=== PATIENT | male | born 1995 | race Caucasian/White ===

== ENCOUNTER 2019-11-11 16:30 | Emergency (ER) | payer MEDICAID ==
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
== END 2019-11-11 18:05 | disposition home or self-care (01) ==
LOC: JD.ED 16:30
DX: S22.31XA Fracture of one rib, right side, initial encounter for closed fracture (principal); S12.601A Unspecified nondisplaced fracture of seventh cervical vertebra, initial encounter for closed fracture; M54.5 Low back pain; F17.210 Nicotine dependence, cigarettes, uncomplicated; W16.42XA Fall into unspecified water causing other injury, initial encounter; Y92.828 Other wilderness area as the place of occurrence of the external cause
CPT/HCPCS: 99283

== ENCOUNTER 2019-11-28 12:52 | Emergency (ER) | payer MEDICAID ==
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
== END 2019-11-28 13:56 | disposition home or self-care (01) ==
LOC: JD.ED 12:52
DX: S12.691D Other nondisplaced fracture of seventh cervical vertebra, subsequent encounter for fracture with routine healing (principal); M54.10 Radiculopathy, site unspecified; F17.210 Nicotine dependence, cigarettes, uncomplicated; Z79.899 Other long term (current) drug therapy; W16.122D Fall into natural body of water striking bottom causing other injury, subsequent encounter
CPT/HCPCS: 99283

== ENCOUNTER 2020-07-19 07:34 | Emergency (ER) | payer SELFPAY ==
--- NOTE | 2020-07-19 08:14 | EDM.PDOC ---
ED HPI GENERAL MEDICAL PROBLEM - General Chief Complaint: Chest Pain Stated Complaint: HEADACHE/CHEST PAIN/COUGH Time Seen by Provider: 07/19/20 08:04 - History of Present Illness INITIAL COMMENTS - FREE TEXT/NARRATIVE: 25-year-old male presents the emergency room with 3-day history of cough and generally not feeling well. This started about 3 days ago progressively getting worse he has a dry nonproductive cough. He is not aware of any fevers but has not been checking. No nausea or vomiting or GI symptoms. Denies any loss of taste or smell. Past medical history is for the most part unremarkable he had a recent C7 fracture along with an associated rib fracture. This all healed up with conservative management. He is not taking any routine medications. He has some chest discomfort usually with deep breathing. Chest Pain Score (Numeric/FACES): 8 Headache Pain Score (Numeric/FACES): 10 - Related Data Allergies Allergy/AdvReac Type Severity Reaction Status Date / Time No Known Allergies Allergy Verified 07/19/20 07:47 Home Meds: Home Meds Gabapentin [Neurontin] 300 mg PO ASDIRECTED #90 cap 11/28/19 [Rx] Past Medical History - Past Health History Medical/Surgical History: Denies Medical/Surgical History Respiratory History: Reports: Bronchitis, Recurrent Gastrointestinal History: Reports: PUD Musculoskeletal History: Reports: Fracture Other Musculoskeletal History: Fx C7, rib fx Social & Family History - Tobacco Use Tobacco Use Status *Q: Current Every Day Tobacco User Years of Tobacco use: 5 Packs/Tins Daily: 1 - Caffeine Use Caffeine Use: Reports: Coffee, Energy Drinks, Soda - Alcohol Use Days Per Week of Alcohol Use: 2 Number of Drinks Per Day: 6 Total Drinks Per Week: 12 - Recreational Drug Use Recreational Drug Use: Yes Drug Use in Last 12 Months: Yes Recreational Drug Type: Reports: Marijuana/Hashish - Living Situation & Occupation Living situation: Reports: Single Occupation: Employed ED ROS GENERAL - Review of Systems Review Of Systems: See Below Constitutional: Reports: No Symptoms HEENT: Reports: No Symptoms Respiratory: Reports: Cough. Denies: Shortness of Breath, Wheezing, Pleuritic Chest Pain, Sputum Cardiovascular: Reports: No Symptoms Endocrine: Reports: No Symptoms GI/Abdominal: Reports: No Symptoms : Reports: No Symptoms Musculoskeletal: Reports: No Symptoms Skin: Reports: No Symptoms Neurological: Reports: No Symptoms Psychiatric: Reports: No Symptoms Hematologic/Lymphatic: Reports: No Symptoms Immunologic: Reports: No Symptoms ED EXAM, GENERAL - Physical Exam Exam: See Below Exam Limited By: No Limitations General Appearance: Alert, No Apparent Distress Eye Exam: Bilateral Eye: Normal Inspection Ears: Normal External Exam, Normal Canal, Hearing Grossly Normal, Normal TMs Nose: Normal Inspection, Normal Mucosa, No Blood Throat/Mouth: Normal Inspection, Normal Lips, Normal Teeth, Normal Gums, Normal Oropharynx, Normal Voice, No Airway Compromise Head: Atraumatic, Normocephalic Neck: Normal Inspection, Supple, Non-Tender, Full Range of Motion. No: Lymphadenopathy (L), Lymphadenopathy (R) Respiratory/Chest: No Respiratory Distress, Lungs Clear, Normal Breath Sounds Cardiovascular: Regular Rate, Rhythm, No Edema, No Murmur GI/Abdominal: Normal Bowel Sounds, Soft, Non-Tender Back Exam: Normal Inspection. No: CVA Tenderness (L), CVA Tenderness (R) Extremities: Normal Inspection, No Pedal Edema Neurological: Alert, Oriented, Normal Cognition Skin Exam: Warm, Dry, Intact Course - Vital Signs Last Recorded V/S: Last Vital Signs Temp 36.9 C 07/19/20 07:40 Pulse 82 07/19/20 07:40 Resp 18 07/19/20 07:40 BP 126/87 07/19/20 07:40 Pulse Ox 98 07/19/20 07:40 - Orders/Labs/Meds Labs: Laboratory Tests 07/19/20 07/19/20 07/19/20 Range/Units 08:47 08:47 08:47 WBC 8.25 (4.23-9.07) K/mm3 RBC 4.51 L (4.63-6.08) M/mm3 Hgb 14.3 (13.7-17.5) gm/dl Hct 42.5 (40.1-51.0) % MCV 94.2 H (79.0-92.2) fl MCH 31.7 (25.7-32.2) pg MCHC 33.6 (32.2-35.5) g/dl RDW Std Deviation 43.3 (35.1-43.9) fL Plt Count 290 (163-337) K/mm3 MPV 8.6 L (9.4-12.3) fl Neutrophils % (Manual) 62 H (40-60) % Band Neutrophils % 0 (0-10) % Lymphocytes % (Manual) 24 (20-40) % Atypical Lymphs % 0 % Monocytes % (Manual) 12 H (2-10) % Eosinophils % (Manual) 2 (0.8-7.0) % Basophils % (Manual) 0 L (0.2-1.2) Platelet Estimate Adequate RBC Morph Comment Normal D-Dimer, Quantitative < 0.19 L (0.19-0.50) mg/L Sodium 141 (136-145) mEq/L Potassium 4.4 (3.5-5.1) mEq/L Chloride 104 (98-107) mEq/L Carbon Dioxide 26 (21-32) mEq/L Anion Gap 15.4 H (5-15) BUN 12 (7-18) mg/dL Creatinine 0.8 (0.7-1.3) mg/dL Est Cr Clr Drug Dosing 138.94 mL/min Estimated GFR (MDRD) > 60 (>60) mL/min BUN/Creatinine Ratio 15.0 (14-18) Glucose 98 (74-106) mg/dL Calcium 8.9 (8.5-10.1) mg/dL Total Bilirubin 0.2 (0.2-1.0) mg/dL AST 18 (15-37) U/L ALT 27 (16-63) U/L Alkaline Phosphatase 51 (46-116) U/L Total Protein 6.9 (6.4-8.2) g/dl Albumin 3.9 (3.4-5.0) g/dl Globulin 3.0 gm/dL Albumin/Globulin Ratio 1.3 (1-2) Influenza Type A RNA (NEGATIVE) Influenza Type B RNA (NEGATIVE) SARS-CoV-2 RNA (KAREN) (NEGATIVE) 07/19/20 Range/Units 09:26 WBC (4.23-9.07) K/mm3 RBC (4.63-6.08) M/mm3 Hgb (13.7-17.5) gm/dl Hct (40.1-51.0) % MCV (79.0-92.2) fl MCH (25.7-32.2) pg MCHC (32.2-35.5) g/dl RDW Std Deviation (35.1-43.9) fL Plt Count (163-337) K/mm3 MPV (9.4-12.3) fl Neutrophils % (Manual) (40-60) % Band Neutrophils % (0-10) % Lymphocytes % (Manual) (20-40) % Atypical Lymphs % % Monocytes % (Manual) (2-10) % Eosinophils % (Manual) (0.8-7.0) % Basophils % (Manual) (0.2-1.2) Platelet Estimate RBC Morph Comment D-Dimer, Quantitative (0.19-0.50) mg/L Sodium (136-145) mEq/L Potassium (3.5-5.1) mEq/L Chloride (98-107) mEq/L Carbon Dioxide (21-32) mEq/L Anion Gap (5-15) BUN (7-18) mg/dL Creatinine (0.7-1.3) mg/dL Est Cr Clr Drug Dosing mL/min Estimated GFR (MDRD) (>60) mL/min BUN/Creatinine Ratio (14-18) Glucose (74-106) mg/dL Calcium (8.5-10.1) mg/dL Total Bilirubin (0.2-1.0) mg/dL AST (15-37) U/L ALT (16-63) U/L Alkaline Phosphatase (46-116) U/L Total Protein (6.4-8.2) g/dl Albumin (3.4-5.0) g/dl Globulin gm/dL Albumin/Globulin Ratio (1-2) Influenza Type A RNA Negative (NEGATIVE) Influenza Type B RNA Negative (NEGATIVE) SARS-CoV-2 RNA (KAREN) Negative (NEGATIVE) - Re-Assessments/Exams Free Text/Narrative Re-Assessment/Exam: 07/19/20 11:32 Chest x-ray is negative for acute processes no infiltrates noted. Laboratory evaluation is nondiagnostic testing for influenza and Covid is negative. The patient has probably developed a viral illness with associated bronchitis. His cough is absolutely dry and nonproductive. I discussed the findings with the patient advised him to push lots of fluid. Departure - Departure Time of Disposition: 11:36 Disposition: Home, Self-Care 01 Clinical Impression: Acute bronchitis, viral - Discharge Information Referrals: PCP,None [Primary Care Provider] - Forms: ED Department Discharge Additional Instructions: Return to the emergency room with any questions problems or worsening symptoms. Establish with a local healthcare provider and follow-up at the end of this next week. The phone number to the hospital clinic is [phone] Push lots of fluids. Tylenol and/or Motrin as needed for discomfort and/or fevers. Sepsis Event Note (ED) - Evaluation Sepsis Screening Result: No Definite Risk - Focused Exam Vital Signs: Vital Signs Temp Pulse Resp BP Pulse Ox 07/19/20 07:40 36.9 C 82 18 126/87 98
--- NOTE | 2020-07-19 09:45 | CR ---
Chest: Portable view of the chest was obtained. Comparison: No prior chest imaging is available. Heart size and mediastinum are within normal limits for portable technique. Lungs are clear with no acute parenchymal change. No pleural effusions or pneumothorax are seen. Minimal scoliosis is noted. Impression: 1. Nothing acute is appreciated on portable chest x-ray. Diagnostic code #2
[2020-07-19 10:15] LABS: CORONAVIRUS COVID-19 NAA NEGATIVE (NEGATIVE)
== END 2020-07-19 11:47 | disposition home or self-care (01) ==
LOC: JD.ED 07:34
DX: J20.8 Acute bronchitis due to other specified organisms (principal); Z72.0 Tobacco use; Z20.822 Contact with and (suspected) exposure to COVID-19
CPT/HCPCS: 0240U; 36415; 71045; 80053; 85007; 85027; 85379; 99283; 99282

== ENCOUNTER 2024-12-27 15:41 | Emergency (ER) | payer SELFPAY ==
[2024-12-27] MEDS: cefTRIAXone 1 GM, Lidocaine 1% 2.1 ML IM ONE (16:55)
[2024-12-27] MEDS: Ofloxacin 0.3% Ophth Soln 5 ML Bottle EARRT ONE ×2 (16:56→16:57)
== END 2024-12-27 17:15 | disposition home or self-care (01) ==
LOC: JD.ED 15:41
DX: H66.011 Acute suppurative otitis media with spontaneous rupture of ear drum, right ear (principal); F17.210 Nicotine dependence, cigarettes, uncomplicated
CPT/HCPCS: 96372; 99282; J0696; J2003; 99283; A9270-GY